=== PATIENT | male | born 1995 | race Caucasian/White ===

== ENCOUNTER 2019-07-16 12:50 | Emergency (ER) | payer OTHER ==
[2019-07-16 12:56] VITALS: BP 122/71; PULSE 85; TEMP 98.4; BMI 23.6
--- NOTE | 2019-07-16 13:40 | PDOC ---
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 Complains of tightness of the muscles of his neck and shoulders, inability to adequately concentrate, difficulty sleeping. Denies feeling depressed or having suicidal or homicidal ideations. - Physicial Exam PE: 07/16/19 14:12 Physical exam is entirely normal, including vital signs, neurological exam, and mentation. - Medical Decision Making 07/16/19 14:12 Assessment: Stress, anxiety, no sign of physical or neurological disease. Plan: Reassure, relaxation techniques were reviewed including deep breathing, meditation, and yoga, heat to neck muscles prescribed, rest from sports 1 week. Follow-up neurologist if symptoms persist or worsen as directed. Fully ambulatory and in no significant distress at discharge with friend to follow-up as directed.
--- NOTE | 2019-07-16 14:18 | PDOC ---
History of Present Illness - General Chief Complaint: Lightheaded Stated Complaint: HEADACHE, DIZZY Time Seen by Provider: 07/16/19 12:59 History Source: Patient Exam Limitations: No Limitations - History of Present Illness Initial Comments: 07/16/19 14:10 Gigi Pierce is a 24 year old [place]ian-speaking male from [facility] presenting with difficulty concentrating after returning from [facility] one week ago. Patient recently returned from [facility], was visiting mother and sister. Since returning, has been feeling off, describes not as dizziness or lightheadedness, but difficulty focusing/concentrating in class and when playing soccer, occurs randomly and has no inciting triggers. Complains of mild neck pain for 2 days without headache. Denies fever/chills, nausea, vomiting, chest pain, SOB, palpitations, abdominal pain, weakness, vision changes, hearing changes. Under stress to do well in school this semester, has family issues with father, is jet-lagged from trip still, has been having poor sleep and decreased PO intake. Denies SI/HI, denies history of anxiety or depression. Past History - Past Medical History Allergies/Adverse Reactions: Allergies Allergy/AdvReac Type Severity Reaction Status Date / Time No Known Allergies Allergy Verified 07/16/19 12:52 Home Medications: Ambulatory Orders NK [No Known Home Medication] 07/16/19 COPD: No Other medical history: h/o concussions - Psycho Social/Smoking Cessation Hx Smoking History: Never smoked Have you smoked in the past 12 months: No Information on smoking cessation initiated: No Hx Alcohol Use: No Review of Systems - Review of Systems Able to Perform ROS?: Yes Constitutional: No: Chills, Fever HEENTM: No: Eye Pain, Blurred Vision, Hearing Loss Respiratory: No: Cough, Shortness of Breath, Wheezing Cardiac (ROS): No: Chest Pain, Edema, Irregular Heart Rate, Lightheadedness, Palpitations, Syncope ABD/GI: No: Constipated, Diarrhea, Nausea, Poor Appetite, Poor Fluid Intake, Vomiting : No: Burning, Dysuria, Discharge, Frequency, Flank Pain, Hematuria Musculoskeletal: Yes: Neck Pain. No: Back Pain, Joint Pain, Joint Swelling, Muscle Pain Integumentary: No: Bruising, Change in Color, Erythema, Lesions, Rash Neurological: Yes: Dizziness. No: Headache, Numbness, Paresthesia, Tremors, Weakness, Unsteady Gait, Ataxia Psychiatric: Yes: Stressors, Sleep Pattern Change, Change in Appetite Endocrine: No: Symptoms Reported Hematologic/Lymphatic: No: Symptoms Reported All Other Systems: Reviewed and Negative *Physical Exam - Vital Signs Last Vital Signs Temp Pulse Resp BP Pulse Ox 98.4 F 85 18 122/71 98 07/16/19 12:50 07/16/19 12:50 07/16/19 12:50 07/16/19 12:50 07/16/19 12:50 - Physical Exam General Appearance: Yes: Nourished, Appropriately Dressed, Thin. No: Apparent Distress HEENT: positive: EOMI, JEREL, Normal ENT Inspection, Normal Voice, Symmetrical, Pharynx Normal, Hearing Grossly Normal. negative: Scleral Icterus (R), Scleral Icterus (L) Neck: positive: Trachea midline, Normal Thyroid, Supple, Tender lateral. negative: Tender, Rigid, Decreased range of motion (full flexion/extension of neck without issues), Lymphadenopathy (R), Lymphadenopathy (L), Tender midline Respiratory/Chest: positive: Lungs Clear, Normal Breath Sounds. negative: Chest Tender, Respiratory Distress, Accessory Muscle Use, Crackles, Rales, Rhonchi, Stridor, Wheezing Cardiovascular: positive: Regular Rhythm, Regular Rate. negative: Murmur Gastrointestinal/Abdominal: positive: Normal Bowel Sounds, Flat, Soft. negative : Tender, Organomegaly, Pulsatile Mass, Guarding, Rebound Musculoskeletal: positive: Normal Inspection. negative: CVA Tenderness, Vertebral Tenderness Extremity: positive: Normal Capillary Refill, Normal Inspection, Normal Range of Motion, Pelvis Stable. negative: Tender, Pedal Edema, Swelling, Calf Tenderness Integumentary: positive: Normal Color, Dry, Warm Neurologic: positive: classifier tender II-XII NML intact, Fully Oriented, Alert, Normal Mood/ Affect, Other (gait normal without dizziness reported with position change). negative: Normal Response, Motor Strength 5/5, Sensory Deficit Medical Decision Making - Medical Decision Making 07/16/19 14:45 Patient presents with vague and non-specific concentration issues in the setting of known home stressors, sleep/diet changes. Denies fever/chills, N/V, abd pain, LLOYD, sick contacts. Has vague neck pain without deficits, fever, or LLOYD , low suspicion for meningitis. Symptoms are likely associated with underlying depression/anxiety symptoms, recommending relaxation, break from school/sports, and meditation/counseling if needed. Will refer to neurology if symptoms do not improve on their own with stressor control. Discharge - Discharge Information Problems reviewed: Yes Clinical Impression/Diagnosis: Dizziness, Neck pain Condition: Stable Disposition: HOME - Admission No - Follow up/Referral Referrals: Girma Delvalle MD [Staff Physician] - - Patient Discharge Instructions Patient Printed Discharge Instructions: Depression in College, Relaxation Therapies (Alternative Therapy) Additional Instructions: Today you were evaluated for poor concentration and dizziness. Your symptoms are likely being caused by stress in your life, which can cause side-effects such as poor sleep, poor eating, headaches, poor concentration, and other problems. You can try to relax at home and minimize stressors. Eat a good diet, and try to get as much sleep as possible. We recommend taking some time off of sports and taking the rest of the day off of college to relax. For your neck pain, relax your neck and use some hot packs and Motrin as needed. If your concentration problems worsen, a referral to see a neurologist has been given. If you experience any worsening concentration, vision problems, chest pain, trouble breathing, feelings of wanting to hurt yourself, or any other new or concerning symptoms, please return to the emergency room. - Post Discharge Activity Work/Back to School Note: Back to School
== END 2019-07-16 14:35 | disposition home or self-care (01) ==
LOC: FER 12:50
DX: R42 Dizziness and giddiness (principal); M54.2 Cervicalgia
CPT/HCPCS: 99282-25